=== PATIENT | male | born 1950 | race Caucasian/White ===

== ENCOUNTER 2021-09-15 14:22 | Emergency (ER) | payer MEDICARE ==
[~2021-09-15] VITALS: Ht 175.3 cm; Wt 86.2 kg
[~2021-09-15 14:22] MED LIST: ASPIR 8181 MG PO
[2021-09-15] MEDS ORDERED: AMLODIPINE BESY10 MG PO (18:33)
[2021-09-15] MEDS ORDERED: LOSARTAN POTASS50 MG PO (18:33)
[2021-09-15] MEDS ORDERED: ATORVASTATIN CA80 MG PO (18:33)
== END 2021-09-15 20:14 | disposition home or self-care (01) ==
LOC: ED 14:22
DX: U07.1 COVID-19 (principal); Z23 Encounter for immunization; F17.200 Nicotine dependence, unspecified, uncomplicated; Z79.899 Other long term (current) drug therapy; Z79.82 Long term (current) use of aspirin
CPT/HCPCS: 96374; 99283-25